=== PATIENT | male | born 1935 | race Caucasian/White ===

== ENCOUNTER 2021-08-12 04:41 | Inpatient (IN) | payer OTHER, MEDICARE ==
[2021-08-12 05:07] LABS: #Basophils 0.1 10x3/uL (0.0-0.2); #Eosinphils 0.3 10x3/uL (0.0-0.5); #Monocytes 0.9 10x3/uL (0.0-1.1); %Basophils 1.4 % (0.0-2.0); %Eosinophils 4.7 % (0.0-6.0); %Lymphocytes 19.1 % (18.0-47.0); %Monocytes 13.6 % (0.0-10.0); Hemoglobin 14.8 g/dL (13.5-17.5); Mean Corpuscular HGB CONC 32.8 g/dL (32.0-36.0); Mean Corpuscular Hemoglobin 27.5 pg (27.0-33.0); Mean Corpuscular Volume 83.7 fl (81.2-95.1); Mean Platelet Volume 9.9 fl (7.4-10.4); Platelet Count 225 10x3/uL (150-450); RBC Distribution Width 13.1 % (11.5-14.5); Red Blood Cell (RBC) Count 5.39 10x6/uL (4.32-5.72); White Blood Cell (WBC) Count 6.6 10x3/uL (3.5-10.5)
[2021-08-12 05:27] LABS: ALT (SGPT) 17 U/L (8-55); AST (SGOT) 20 U/L (5-34); Albumin 3.8 g/dL (3.4-4.8); Alkaline Phosphatase 113 U/L (40-110); Anion Gap 13 mmol/L (10-20); BUN (Urea Nitrogen) 22 mg/dL (8.4-25.7); Bilirubin, Total 0.6 mg/dL (0.2-1.2); Calc. Creatinine Clearance 0 mL/min (70-130); Calcium 9.7 mg/dL (7.8-10.44); Carbon Dioxide 25 mmol/L (23-31); Chloride 107 mmol/L (98-107); Globulin 2.2 g/dL (2.4-3.5); Glucose 157 mg/dL (83-110); Potassium 4.3 mmol/L (3.5-5.1); Sodium 141 mmol/L (136-145)
[2021-08-12 06:05] LABS: SARS-CoV-2 NAA Rapid Test Not Detected (NotDetected)
[2021-08-12 08:08] VITALS: BMI 25.0
[2021-08-12] MEDS ORDERED: Ondansetron ODT 4 MG TAB PO PRN (08:11)
[2021-08-12] MEDS ORDERED: Dextrose 50% Abboject 50 ML SYRINGE SLOW IVP PRN (08:20)
[2021-08-12] MEDS ORDERED: Nitroglycerin 0.4 MG TAB (25 Tab Bottle) SL PRN (08:20)
[2021-08-12] MEDS ORDERED: Dextrose 5% in Water 1,000 ML IV PRN (08:20)
[2021-08-12] MEDS ORDERED: HumaLOG 300 UNITS/3 ML VIAL SC PRN ×2 (08:20)
[2021-08-12] MEDS ORDERED: Aspirin 81 mg Enteric Coated Tablet PO SCH (09:00)
[2021-08-12 09:39] LABS: Magnesium 1.7 mg/dL (1.6-2.6)
[2021-08-12] MEDS: Metoprolol Tartrate 50 MG TAB PO SCH ×2 (10:48→20:27)
[2021-08-12 10:57] LABS: Troponin I Less than 0.010 ng/mL (< 0.028)
[2021-08-12 14:02] LABS: Troponin I Less than 0.010 ng/mL (< 0.028)
[2021-08-12] MEDS ORDERED: hydrALAZINE 20 MG/ML VIAL SLOW IVP PRN (16:04)
[2021-08-12] MEDS ORDERED: hydrALAZINE 25 MG TAB PO SCH ×2 (16:45→21:00)
[2021-08-12] MEDS ORDERED: Lisinopril 10 MG TAB PO SCH (18:44)
[2021-08-12] MEDS: Atorvastatin Calcium 40 MG TAB PO SCH (20:27)
[2021-08-12] MEDS: Carbidopa/Levodopa CR 50-200 mg Tablet PO SCH (20:28)
[2021-08-12] MEDS ORDERED: Atorvastatin Calcium 40 MG TAB PO SCH (21:00)
[2021-08-13] MEDS ORDERED: Melatonin 3 MG TAB PO SCH (00:30)
[2021-08-13] MEDS: Acetaminophen 325 MG TAB PO PRN ×2 (00:34→15:13)
[2021-08-13 04:36] LABS: #Basophils 0.1 10x3/uL (0.0-0.2); #Eosinphils 0.3 10x3/uL (0.0-0.5); #Monocytes 0.8 10x3/uL (0.0-1.1); #Neutrophils 3.5 10x3/uL (1.5-8.4); %Eosinophils 5.6 % (0.0-6.0); %Lymphocytes 19.9 % (18.0-47.0); %Monocytes 13.2 % (0.0-10.0); %Neutrophils 60.1 % (40.0-75.0); Mean Corpuscular HGB CONC 33.9 g/dL (32.0-36.0); Mean Corpuscular Hemoglobin 27.2 pg (27.0-33.0); Mean Corpuscular Volume 80.3 fl (81.2-95.1); Mean Platelet Volume 9.8 fl (7.4-10.4); Platelet Count 216 10x3/uL (150-450); Red Blood Cell (RBC) Count 5.52 10x6/uL (4.32-5.72); White Blood Cell (WBC) Count 5.9 10x3/uL (3.5-10.5)
[2021-08-13 04:49] LABS: Anion Gap 14 mmol/L (10-20); BUN (Urea Nitrogen) 21 mg/dL (8.4-25.7); Calc. Creatinine Clearance 43 mL/min (70-130); Calcium 9.6 mg/dL (7.8-10.44); Carbon Dioxide 25 mmol/L (23-31); Cardiac Risk 3.4 (Less than 4.5); Chloride 107 mmol/L (98-107); Cholesterol 103 mg/dl (< 200 Desired); Glucose 140 mg/dL (83-110); HDL Cholesterol 30 mg/dL (>60 Neg Risk); LDL Cholesterol, Calculated 57 mg/dL; Potassium 4.3 mmol/L (3.5-5.1); Sodium 142 mmol/L (136-145); Triglycerides 80 mg/dL (Less than 150)
[2021-08-13] MEDS: Levothyroxine Sodium 100 MCG TAB PO SCH (05:15)
[2021-08-13] MEDS ORDERED: Carvedilol 6.25 MG TAB PO SCH (08:00)
[2021-08-13] MEDS: Amlodipine 10 MG TAB PO SCH (10:23)
[2021-08-13] MEDS: Carvedilol 12.5 MG TAB PO SCH ×2 (10:23→15:45)
[2021-08-13] MEDS: glipiZIDE 5 MG TAB PO SCH (10:23)
[2021-08-13] MEDS: Carbidopa/Levodopa CR 50-200 mg Tablet PO SCH ×2 (10:25→21:59)
[2021-08-13 12:38] LABS: Hemoglobin A1c 7.2 % (4.0-6.0)
[2021-08-13] MEDS ORDERED: Carvedilol 12.5 MG TAB PO SCH ×2 (15:45→17:00)
[2021-08-13] MEDS: Carvedilol 25 MG TAB PO SCH (17:22)
[2021-08-13] MEDS: Ondansetron PF 4 MG/2 ML Vial IVP PRN (20:17)
[2021-08-13] MEDS: Atorvastatin Calcium 40 MG TAB PO SCH (21:59)
[2021-08-13] MEDS: Melatonin 3 MG TAB PO PRN (22:10)
[2021-08-14] MEDS: Ondansetron PF 4 MG/2 ML Vial IVP PRN ×3 (02:19→16:00)
[2021-08-14] MEDS: Levothyroxine Sodium 100 MCG TAB PO SCH (05:46)
[2021-08-14] MEDS: Carvedilol 25 MG TAB PO SCH ×2 (10:14→17:03)
[2021-08-14] MEDS: Amlodipine 10 MG TAB PO SCH (10:14)
[2021-08-14] MEDS: Lisinopril 5 MG TAB PO SCH (10:14)
[2021-08-14] MEDS: glipiZIDE 5 MG TAB PO SCH (10:14)
[2021-08-14] MEDS: Carbidopa/Levodopa CR 50-200 mg Tablet PO SCH ×2 (10:15→20:23)
[2021-08-14] MEDS ORDERED: Promethazine HCl 12.5 MG in Sodium Chloride 0.9% 50 ML IVPB SCH (16:00)
[2021-08-14] MEDS: Melatonin 3 MG TAB PO PRN (20:23)
[2021-08-14] MEDS: Atorvastatin Calcium 40 MG TAB PO SCH (20:23)
[2021-08-15] MEDS: Levothyroxine Sodium 100 MCG TAB PO SCH (07:17)
[2021-08-15] MEDS: Amlodipine 10 MG TAB PO SCH (09:28)
[2021-08-15] MEDS: glipiZIDE 5 MG TAB PO SCH (09:28)
[2021-08-15] MEDS: Carvedilol 25 MG TAB PO SCH (09:29)
[2021-08-15] MEDS: Ondansetron PF 4 MG/2 ML Vial IVP PRN (09:29)
[2021-08-15] MEDS: Lisinopril 5 MG TAB PO SCH (09:29)
[2021-08-15] MEDS: Carbidopa/Levodopa CR 50-200 mg Tablet PO SCH (10:26)
[2021-08-15 13:06] VITALS: BP 122/60; TEMP 97.4
== END 2021-08-15 13:30 | disposition home or self-care (01) | DRG 683 ==
LOC: CSHERS 04:41 → CSHTELE 08:04 → INTOOBSV 08:04 → OBSVTOIN 08-14 11:02
PROVIDERS: ADMIT Family Medicine; ATTEND Family Medicine
DX: I12.9 Hypertensive chronic kidney disease with stage 1 through stage 4 chronic kidney disease, or unspecified chronic kidney disease (principal); N17.9 Acute kidney failure, unspecified; R07.89 Other chest pain; Z20.822 Contact with and (suspected) exposure to COVID-19; E78.5 Hyperlipidemia, unspecified; G20 Parkinson's disease; I25.10 Atherosclerotic heart disease of native coronary artery without angina pectoris; K21.9 Gastro-esophageal reflux disease without esophagitis; E03.9 Hypothyroidism, unspecified; E11.22 Type 2 diabetes mellitus with diabetic chronic kidney disease; N18.30 Chronic kidney disease, stage 3 unspecified; F32.A Depression, unspecified; I49.5 Sick sinus syndrome; M10.9 Gout, unspecified; Z95.0 Presence of cardiac pacemaker; Z79.899 Other long term (current) drug therapy; Z79.890 Hormone replacement therapy; Z90.89 Acquired absence of other organs; Z90.49 Acquired absence of other specified parts of digestive tract; Z87.891 Personal history of nicotine dependence
CPT/HCPCS: 36415; 36416; 71045; 80048; 80053; 80061; 83036; 83735; 84443; 84484; 85025; 93005; 93010; 93306; 94760; 96374; G0378; J0360; J2405; J2550; Q0162; U0002

== ENCOUNTER 2023-04-13 00:31 | Inpatient (IN) | payer OTHER, MEDICARE ==
[2023-04-13 01:31] LABS: ALT (SGPT) 15 U/L (8-55); AST (SGOT) 21 U/L (5-34); Albumin 3.8 g/dL (3.4-4.8); Alkaline Phosphatase 147 U/L (40-110); Anion Gap 15 mmol/L (10-20); BUN (Urea Nitrogen) 23 mg/dL (8.4-25.7); Bilirubin, Total 0.5 mg/dL (0.2-1.2); Calc. Creatinine Clearance 0 mL/min (70-130); Calcium 9.6 mg/dL (7.8-10.44); Carbon Dioxide 21 mmol/L (23-31); Chloride 110 mmol/L (98-107); Estimated GFR 25; Globulin 3.1 g/dL (2.4-3.5); Glucose 246 mg/dL (83-110); Potassium 4.8 mmol/L (3.5-5.1); Protein, Total 6.9 g/dL (5.8-8.1); Sodium 141 mmol/L (136-145)
[2023-04-13 01:34] LABS: #Basophils 0.1 10x3/uL (0.0-0.2); #Eosinphils 0.2 10x3/uL (0.0-0.5); %Basophils 0.6 % (0.0-2.0); %Lymphocytes 8.3 % (18.0-47.0); %Monocytes 8.9 % (0.0-10.0); %Neutrophils 79.8 % (40.0-75.0); Hematocrit 44.1 % (38.8-50.0); Hemoglobin 14.2 g/dL (13.5-17.5); Mean Corpuscular HGB CONC 32.2 g/dL (32.0-36.0); Mean Corpuscular Volume 83.8 fl (81.2-95.1); Mean Platelet Volume 9.7 fl (7.4-10.4); Platelet Count 232 10x3/uL (150-450); RBC Distribution Width 13.7 % (11.5-14.5); Red Blood Cell (RBC) Count 5.26 10x6/uL (4.32-5.72); White Blood Cell (WBC) Count 11.3 10x3/uL (3.5-10.5)
[2023-04-13 01:37] LABS: Troponin I 0.011 ng/mL (< 0.028)
[2023-04-13 01:44] LABS: SARS-CoV-2 NAA Rapid Test Not Detected (NotDetected)
[2023-04-13 03:05] LABS: Bilirubin Neg (Negative); Blood, Urine 150 (Negative); Clarity Cloudy (Clear); Glucose, Urine (Dipstick) Normal (Negative); Ketone, Urine Negative (Negative); Leukocyte 500 (Negative); Nitrite Negative (Negative); Protein, Urine (Dipstick) 100 mg/dl (Neg-Trace); Specific Gravity, Urine 1.015 (1.005-1.030)
[2023-04-13 03:15] LABS: Bacteria/HPF 2+ HPF (None Seen); CAUTI Indications for Culture Pelvic or flank pain; RBC/HPF 0-3 HPF (0-3); Squamous Epithelial 0-3 HPF (0-3); WBC/HPF Greater than 50 HPF (0-3)
[2023-04-13 03:16] LABS: Urine Culture Reflex Yes Yes
[2023-04-13] MEDS ORDERED: cefTRIAXone (ROCEPHIN) 2 GM VIAL ONE (03:16)
[2023-04-13] MEDS ORDERED: Calcium Carbonate 500 MG ChewTAB PO PRN (03:32)
[2023-04-13] MEDS ORDERED: Guaifenesin DM 100-10/5 ML UDCUP PO PRN (03:32)
[2023-04-13] MEDS ORDERED: Dextrose 50% Abboject 50 ML SYRINGE SLOW IVP PRN (03:32)
[2023-04-13] MEDS ORDERED: Ondansetron PF 4 MG/2 ML Vial IVP PRN (03:32)
[2023-04-13] MEDS ORDERED: Dextrose 5% in Water 1,000 ML IV PRN (03:32)
[2023-04-13] MEDS ORDERED: Senokot S 8.6-50 MG TAB PO PRN (03:32)
[2023-04-13] MEDS ORDERED: Glucagon 1 MG/ML KIT IM PRN (03:32)
[2023-04-13] MEDS ORDERED: Sodium Chloride 0.9% 500 ML IV SCH (03:45)
[2023-04-13 04:07] VITALS: BMI 25.7
[2023-04-13] MEDS: Levothyroxine Sodium 100 MCG TAB PO SCH (04:55)
[2023-04-13] MEDS ORDERED: Carvedilol 25 MG TAB PO SCH (08:00)
[2023-04-13] MEDS: HumaLOG 300 UNITS/3 ML VIAL SC PRN (09:00)
[2023-04-13] MEDS ORDERED: Carvedilol 3.125 MG TAB ONE (09:12)
[2023-04-13] MEDS ORDERED: Cholecalciferol 1,000 UNITS (25 MCG) TAB ONE (09:12)
[2023-04-13] MEDS ORDERED: Insulin Regular 300 UNITS/3 ML VIAL ONE (09:17)
[2023-04-13] MEDS: Cholecalciferol 1,000 UNITS (25 MCG) TAB PO SCH (09:21)
[2023-04-13] MEDS: Carvedilol 3.125 MG TAB PO SCH ×2 (09:21→17:23)
[2023-04-13] MEDS: Polyethylene Glycol 3350 17 GM Packet PO SCH (09:22)
[2023-04-13] MEDS: glipiZIDE 5 MG TAB PO SCH (09:22)
[2023-04-13] MEDS ORDERED: FLU VACC QS2023(65UP)/MF59C/PF 60 MCG/0.5 ML SYRINGE IM ONE (18:45)
[2023-04-13] MEDS: Gabapentin 300 MG CAP PO SCH (22:21)
[2023-04-13] MEDS: Rosuvastatin 10 MG TAB PO SCH (22:22)
[2023-04-13] MEDS: Doxepin HCl 25 MG CAP PO SCH (22:23)
[2023-04-14] MEDS: cefTRIAXone\\ROCEPHIN 1 GM in Sodium Chloride 0.9% 100 ML IVPB SCH (03:58)
[2023-04-14 04:36] LABS: #Basophils 0.1 10x3/uL (0.0-0.2); #Eosinphils 0.2 10x3/uL (0.0-0.5); #Monocytes 0.8 10x3/uL (0.0-1.1); #Neutrophils 3.9 10x3/uL (1.5-8.4); %Eosinophils 3.4 % (0.0-6.0); %Lymphocytes 16.8 % (18.0-47.0); %Monocytes 13.8 % (0.0-10.0); %Neutrophils 64.8 % (40.0-75.0); Hematocrit 36.8 % (38.8-50.0); Hemoglobin 12.1 g/dL (13.5-17.5); Mean Corpuscular HGB CONC 32.9 g/dL (32.0-36.0); Mean Corpuscular Hemoglobin 27.6 pg (27.0-33.0); Platelet Count 191 10x3/uL (150-450); RBC Distribution Width 13.7 % (11.5-14.5); Red Blood Cell (RBC) Count 4.38 10x6/uL (4.32-5.72); White Blood Cell (WBC) Count 5.9 10x3/uL (3.5-10.5)
[2023-04-14 05:05] LABS: Anion Gap 12 mmol/L (10-20); BUN (Urea Nitrogen) 27 mg/dL (8.4-25.7); CK (CPK) 19 U/L (30-200); Calc. Creatinine Clearance 30 mL/min (70-130); Calcium 8.9 mg/dL (7.8-10.44); Carbon Dioxide 21 mmol/L (23-31); Chloride 112 mmol/L (98-107); Estimated GFR 28; Glucose 203 mg/dL (83-110); Sodium 141 mmol/L (136-145)
[2023-04-14] MEDS: Levothyroxine Sodium 100 MCG TAB PO SCH (05:48)
[2023-04-14] MEDS: Fluticasone Propionate Nasal Spray 16 gm Bottle NASAL SCH (09:58)
[2023-04-14] MEDS: Cholecalciferol 1,000 UNITS (25 MCG) TAB PO SCH (09:58)
[2023-04-14] MEDS: glipiZIDE 5 MG TAB PO SCH (09:58)
[2023-04-14] MEDS: Carvedilol 3.125 MG TAB PO SCH ×2 (09:58→17:26)
[2023-04-14] MEDS: Polyethylene Glycol 3350 17 GM Packet PO SCH (09:59)
[2023-04-14] MEDS: Gabapentin 300 MG CAP PO SCH (20:43)
[2023-04-14] MEDS: Rosuvastatin 10 MG TAB PO SCH (20:44)
[2023-04-14] MEDS: Doxepin HCl 25 MG CAP PO SCH (20:44)
[2023-04-15] MEDS: cefTRIAXone\\ROCEPHIN 1 GM in Sodium Chloride 0.9% 100 ML IVPB SCH (03:55)
[2023-04-15] MEDS: Levothyroxine Sodium 100 MCG TAB PO SCH (05:15)
[2023-04-15] MEDS: Carvedilol 3.125 MG TAB PO SCH ×2 (09:10→17:45)
[2023-04-15] MEDS: Fluticasone Propionate Nasal Spray 16 gm Bottle NASAL SCH (09:10)
[2023-04-15] MEDS: Cholecalciferol 1,000 UNITS (25 MCG) TAB PO SCH (09:10)
[2023-04-15] MEDS: glipiZIDE 5 MG TAB PO SCH (09:10)
[2023-04-15] MEDS: Polyethylene Glycol 3350 17 GM Packet PO SCH (09:10)
[2023-04-15] MEDS: Lisinopril 5 MG TAB PO SCH (09:10)
[2023-04-15] MEDS: Gabapentin 300 MG CAP PO SCH (22:19)
[2023-04-15] MEDS: Doxepin HCl 25 MG CAP PO SCH (22:20)
[2023-04-15] MEDS: Apixaban 2.5 MG TAB PO SCH (22:20)
[2023-04-15] MEDS: Rosuvastatin 10 MG TAB PO SCH (22:20)
[2023-04-16] MEDS: cefTRIAXone\\ROCEPHIN 1 GM in Sodium Chloride 0.9% 100 ML IVPB SCH (03:18)
[2023-04-16] MEDS: Levothyroxine Sodium 100 MCG TAB PO SCH (06:37)
[2023-04-16] MEDS: glipiZIDE 5 MG TAB PO SCH (07:21)
[2023-04-16] MEDS: Cholecalciferol 1,000 UNITS (25 MCG) TAB PO SCH (09:59)
[2023-04-16] MEDS: Carvedilol 3.125 MG TAB PO SCH ×2 (09:59→16:53)
[2023-04-16] MEDS: Lisinopril 5 MG TAB PO SCH (09:59)
[2023-04-16] MEDS: Fluticasone Propionate Nasal Spray 16 gm Bottle NASAL SCH (09:59)
[2023-04-16] MEDS: Polyethylene Glycol 3350 17 GM Packet PO SCH (10:00)
[2023-04-16] MEDS: Apixaban 2.5 MG TAB PO SCH ×2 (10:00→21:55)
[2023-04-16] MEDS: Acetaminophen 325 MG TAB PO PRN (14:36)
[2023-04-16] MEDS ORDERED: Gabapentin 300 MG CAP PO SCH (16:30)
[2023-04-16] MEDS: Gabapentin 300 MG CAP PO SCH (21:54)
[2023-04-16] MEDS: Melatonin 3 MG TAB PO SCH (21:55)
[2023-04-16] MEDS: Doxepin HCl 25 MG CAP PO SCH (21:55)
[2023-04-16] MEDS: Rosuvastatin 10 MG TAB PO SCH (21:55)
[2023-04-17 04:26] LABS: #Basophils 0.1 10x3/uL (0.0-0.2); #Eosinphils 0.3 10x3/uL (0.0-0.5); #Monocytes 0.9 10x3/uL (0.0-1.1); #Neutrophils 5.7 10x3/uL (1.5-8.4); %Basophils 0.8 % (0.0-2.0); %Eosinophils 3.5 % (0.0-6.0); %Lymphocytes 12.7 % (18.0-47.0); %Monocytes 11.1 % (0.0-10.0); %Neutrophils 71.6 % (40.0-75.0); Hematocrit 40.8 % (38.8-50.0); Hemoglobin 13.5 g/dL (13.5-17.5); Mean Corpuscular HGB CONC 33.1 g/dL (32.0-36.0); Mean Corpuscular Hemoglobin 27.8 pg (27.0-33.0); Mean Corpuscular Volume 84.1 fl (81.2-95.1); Mean Platelet Volume 9.9 fl (7.4-10.4); Platelet Count 221 10x3/uL (150-450); RBC Distribution Width 13.7 % (11.5-14.5); Red Blood Cell (RBC) Count 4.85 10x6/uL (4.32-5.72); White Blood Cell (WBC) Count 7.9 10x3/uL (3.5-10.5)
[2023-04-17 04:36] LABS: Anion Gap 12 mmol/L (10-20); BUN (Urea Nitrogen) 27 mg/dL (8.4-25.7); Calc. Creatinine Clearance 36 mL/min (70-130); Calcium 9.3 mg/dL (7.8-10.44); Carbon Dioxide 21 mmol/L (23-31); Chloride 111 mmol/L (98-107); Estimated GFR 35; Glucose 128 mg/dL (83-110); Magnesium 1.6 mg/dL (1.6-2.6); Potassium 4.1 mmol/L (3.5-5.1); Sodium 140 mmol/L (136-145)
[2023-04-17] MEDS: cefTRIAXone\\ROCEPHIN 1 GM in Sodium Chloride 0.9% 100 ML IVPB SCH (04:57)
[2023-04-17] MEDS: Levothyroxine Sodium 100 MCG TAB PO SCH (04:58)
[2023-04-17] MEDS ORDERED: Magnesium 2 GM/50 ML(in water) 2 GM in Premix 1 BAG IVPB SCH (08:00)
[2023-04-17] MEDS: Polyethylene Glycol 3350 17 GM Packet PO SCH (09:52)
[2023-04-17] MEDS: Lisinopril 5 MG TAB PO SCH (09:53)
[2023-04-17] MEDS: Cholecalciferol 1,000 UNITS (25 MCG) TAB PO SCH (09:53)
[2023-04-17] MEDS: glipiZIDE 5 MG TAB PO SCH (09:53)
[2023-04-17] MEDS: Carvedilol 3.125 MG TAB PO SCH ×2 (09:53→16:52)
[2023-04-17] MEDS: Apixaban 2.5 MG TAB PO SCH ×2 (09:53→21:16)
[2023-04-17] MEDS: Gabapentin 300 MG CAP PO SCH ×2 (09:54→21:16)
[2023-04-17] MEDS: Fluticasone Propionate Nasal Spray 16 gm Bottle NASAL SCH (09:55)
[2023-04-17] MEDS: HumaLOG 300 UNITS/3 ML VIAL SC PRN (16:52)
[2023-04-17] MEDS: Melatonin 3 MG TAB PO SCH (21:15)
[2023-04-17] MEDS: Doxepin HCl 25 MG CAP PO SCH (21:16)
[2023-04-17] MEDS: Rosuvastatin 10 MG TAB PO SCH (21:16)
[2023-04-18] MEDS: cefTRIAXone\\ROCEPHIN 1 GM in Sodium Chloride 0.9% 100 ML IVPB SCH (05:26)
[2023-04-18] MEDS: Levothyroxine Sodium 100 MCG TAB PO SCH (05:26)
[2023-04-18] MEDS: Cholecalciferol 1,000 UNITS (25 MCG) TAB PO SCH (09:06)
[2023-04-18] MEDS: Lisinopril 5 MG TAB PO SCH (09:06)
[2023-04-18] MEDS: Apixaban 2.5 MG TAB PO SCH ×2 (09:06→20:36)
[2023-04-18] MEDS: Carvedilol 3.125 MG TAB PO SCH ×2 (09:07→18:09)
[2023-04-18] MEDS: Fluticasone Propionate Nasal Spray 16 gm Bottle NASAL SCH (09:07)
[2023-04-18] MEDS: glipiZIDE 5 MG TAB PO SCH (09:07)
[2023-04-18] MEDS: Polyethylene Glycol 3350 17 GM Packet PO SCH (09:07)
[2023-04-18] MEDS: Gabapentin 300 MG CAP PO SCH ×2 (09:07→20:33)
[2023-04-18] MEDS ORDERED: Dextrose 5%-Lactated Ringers 1,000 ML IV SCH (13:00)
[2023-04-18] MEDS: HumaLOG 300 UNITS/3 ML VIAL SC PRN (13:14)
[2023-04-18] MEDS: Melatonin 3 MG TAB PO SCH (20:34)
[2023-04-18] MEDS: Doxepin HCl 25 MG CAP PO SCH (20:34)
[2023-04-18] MEDS: Acetaminophen 325 MG TAB PO PRN (20:35)
[2023-04-18] MEDS: Rosuvastatin 10 MG TAB PO SCH (20:36)
[2023-04-19 03:59] LABS: Anion Gap 12 mmol/L (10-20); BUN (Urea Nitrogen) 26 mg/dL (8.4-25.7); Calc. Creatinine Clearance 36 mL/min (70-130); Calcium 9.1 mg/dL (7.8-10.44); Carbon Dioxide 21 mmol/L (23-31); Chloride 112 mmol/L (98-107); Estimated GFR 35; Glucose 143 mg/dL (83-110); Sodium 141 mmol/L (136-145)
[2023-04-19 04:07] LABS: #Basophils 0.1 10x3/uL (0.0-0.2); #Eosinphils 0.2 10x3/uL (0.0-0.5); #Monocytes 0.8 10x3/uL (0.0-1.1); #Neutrophils 3.8 10x3/uL (1.5-8.4); %Eosinophils 3.9 % (0.0-6.0); %Lymphocytes 16.8 % (18.0-47.0); %Monocytes 13.2 % (0.0-10.0); %Neutrophils 64.8 % (40.0-75.0); Hematocrit 37.8 % (38.8-50.0); Hemoglobin 12.8 g/dL (13.5-17.5); Mean Corpuscular HGB CONC 33.9 g/dL (32.0-36.0); Mean Corpuscular Hemoglobin 28.1 pg (27.0-33.0); Mean Corpuscular Volume 82.9 fl (81.2-95.1); Mean Platelet Volume 9.9 fl (7.4-10.4); Platelet Count 222 10x3/uL (150-450); RBC Distribution Width 13.4 % (11.5-14.5); Red Blood Cell (RBC) Count 4.56 10x6/uL (4.32-5.72); White Blood Cell (WBC) Count 5.8 10x3/uL (3.5-10.5)
[2023-04-19] MEDS: cefTRIAXone\\ROCEPHIN 1 GM in Sodium Chloride 0.9% 100 ML IVPB SCH (04:44)
[2023-04-19] MEDS: Levothyroxine Sodium 100 MCG TAB PO SCH (05:23)
[2023-04-19] MEDS: glipiZIDE 5 MG TAB PO SCH (09:04)
[2023-04-19] MEDS: Carvedilol 3.125 MG TAB PO SCH ×2 (09:04→18:13)
[2023-04-19] MEDS: Cholecalciferol 1,000 UNITS (25 MCG) TAB PO SCH (09:04)
[2023-04-19] MEDS: Gabapentin 300 MG CAP PO SCH ×2 (09:04→22:01)
[2023-04-19] MEDS: Polyethylene Glycol 3350 17 GM Packet PO SCH (09:06)
[2023-04-19] MEDS: Apixaban 2.5 MG TAB PO SCH ×2 (09:06→21:59)
[2023-04-19] MEDS: Lisinopril 5 MG TAB PO SCH (10:25)
[2023-04-19] MEDS: Fluticasone Propionate Nasal Spray 16 gm Bottle NASAL SCH (10:25)
[2023-04-19] MEDS: HumaLOG 300 UNITS/3 ML VIAL SC PRN (12:35)
[2023-04-19] MEDS: Acetaminophen 325 MG TAB PO PRN (16:13)
[2023-04-19] MEDS: Doxepin HCl 25 MG CAP PO SCH (22:00)
[2023-04-19] MEDS: Rosuvastatin 10 MG TAB PO SCH (22:00)
[2023-04-19] MEDS: Melatonin 3 MG TAB PO SCH (22:00)
[2023-04-19] MEDS: Mirtazapine 15 MG TAB PO SCH (22:02)
[2023-04-20] MEDS: cefTRIAXone\\ROCEPHIN 1 GM in Sodium Chloride 0.9% 100 ML IVPB SCH (03:36)
[2023-04-20 04:18] LABS: Anion Gap 12 mmol/L (10-20); BUN (Urea Nitrogen) 22 mg/dL (8.4-25.7); Calc. Creatinine Clearance 39 mL/min (70-130); Carbon Dioxide 20 mmol/L (23-31); Chloride 114 mmol/L (98-107); Estimated GFR 39; Glucose 143 mg/dL (83-110); Sodium 142 mmol/L (136-145)
[2023-04-20] MEDS: Levothyroxine Sodium 100 MCG TAB PO SCH (06:35)
[2023-04-20] MEDS: glipiZIDE 5 MG TAB PO SCH (07:36)
[2023-04-20] MEDS: Carvedilol 3.125 MG TAB PO SCH ×2 (08:55→17:17)
[2023-04-20] MEDS: Fluticasone Propionate Nasal Spray 16 gm Bottle NASAL SCH (09:54)
[2023-04-20] MEDS: Gabapentin 400 MG CAP PO SCH (09:55)
[2023-04-20] MEDS: Cholecalciferol 1,000 UNITS (25 MCG) TAB PO SCH (09:55)
[2023-04-20] MEDS: Apixaban 2.5 MG TAB PO SCH ×2 (09:55→21:32)
[2023-04-20] MEDS: Lisinopril 5 MG TAB PO SCH (09:55)
[2023-04-20] MEDS: Polyethylene Glycol 3350 17 GM Packet PO SCH ×2 (09:56→10:02)
[2023-04-20] MEDS ORDERED: Bisacodyl 5 MG TAB PO PRN (11:37)
[2023-04-20] MEDS: Rosuvastatin 10 MG TAB PO SCH (21:32)
[2023-04-20] MEDS: Melatonin 3 MG TAB PO SCH (21:32)
[2023-04-20] MEDS: Mirtazapine 15 MG TAB PO SCH (21:33)
[2023-04-20] MEDS: Gabapentin 300 MG CAP PO SCH (21:33)
[2023-04-20] MEDS: Doxepin HCl 25 MG CAP PO SCH (21:34)
[2023-04-21 04:56] LABS: Anion Gap 11 mmol/L (10-20); BUN (Urea Nitrogen) 21 mg/dL (8.4-25.7); Calc. Creatinine Clearance 39 mL/min (70-130); Calcium 9.6 mg/dL (7.8-10.44); Carbon Dioxide 22 mmol/L (23-31); Chloride 112 mmol/L (98-107); Estimated GFR 39; Glucose 122 mg/dL (83-110); Magnesium 1.7 mg/dL (1.6-2.6); Sodium 141 mmol/L (136-145)
[2023-04-21] MEDS: Levothyroxine Sodium 100 MCG TAB PO SCH (06:39)
[2023-04-21] MEDS: glipiZIDE 5 MG TAB PO SCH (07:39)
[2023-04-21 08:59] VITALS: TEMP 97.4
[2023-04-21] MEDS ORDERED: Magnesium 2 GM/50 ML(in water) 2 GM in Premix 1 BAG IVPB SCH (09:00)
[2023-04-21] MEDS: Fluticasone Propionate Nasal Spray 16 gm Bottle NASAL SCH (09:45)
[2023-04-21] MEDS: Polyethylene Glycol 3350 17 GM Packet PO SCH (09:55)
[2023-04-21] MEDS: Apixaban 2.5 MG TAB PO SCH (09:56)
[2023-04-21] MEDS: Gabapentin 400 MG CAP PO SCH (09:56)
[2023-04-21] MEDS: Cholecalciferol 1,000 UNITS (25 MCG) TAB PO SCH (09:56)
[2023-04-21] MEDS: Lisinopril 5 MG TAB PO SCH (09:56)
[2023-04-21] MEDS: Carvedilol 3.125 MG TAB PO SCH (09:57)
[2023-04-21 12:42] VITALS: BP 148/70
== END 2023-04-21 15:52 | disposition home or self-care (01) | DRG 683 ==
LOC: CSHERS 00:31 → CSHERHOLD 03:32 → CSHTELE 16:04 → OBSVTOIN 04-16 11:17
PROVIDERS: ADMIT Student in an Organized Health Care Education/Training Program; ATTEND Internal Medicine
DX: N17.9 Acute kidney failure, unspecified (principal); I13.0 Hypertensive heart and chronic kidney disease with heart failure and stage 1 through stage 4 chronic kidney disease, or unspecified chronic kidney disease; N39.0 Urinary tract infection, site not specified; I48.20 Chronic atrial fibrillation, unspecified; E78.5 Hyperlipidemia, unspecified; I50.9 Heart failure, unspecified; F32.A Depression, unspecified; N18.30 Chronic kidney disease, stage 3 unspecified; E11.22 Type 2 diabetes mellitus with diabetic chronic kidney disease; I25.10 Atherosclerotic heart disease of native coronary artery without angina pectoris; G20.A1 Parkinson's disease without dyskinesia, without mention of fluctuations; E86.0 Dehydration; E03.9 Hypothyroidism, unspecified; K21.9 Gastro-esophageal reflux disease without esophagitis; Z11.52 Encounter for screening for COVID-19; Z90.49 Acquired absence of other specified parts of digestive tract; Z98.890 Other specified postprocedural states; Z87.891 Personal history of nicotine dependence; Z79.899 Other long term (current) drug therapy; Z95.0 Presence of cardiac pacemaker; Z85.51 Personal history of malignant neoplasm of bladder
CPT/HCPCS: 36415; 36416; 71045; 76770; 80048; 80053; 81001; 82550; 83605; 83735; 83880; 84443; 84484; 85025; 87040; 87077; 87086; 87186; 93005; 96374; 96376; G0378; J0696; J1815; J3475; J3490; J7030

== ENCOUNTER 2023-04-29 18:05 | Inpatient (IN) | payer OTHER, MEDICARE ==
[2023-04-29 20:10] LABS: #Basophils 0.1 10x3/uL (0.0-0.2); #Eosinphils 0.3 10x3/uL (0.0-0.5); #Monocytes 0.8 10x3/uL (0.0-1.1); #Neutrophils 4.1 10x3/uL (1.5-8.4); %Eosinophils 4.4 % (0.0-6.0); %Lymphocytes 14.7 % (18.0-47.0); %Monocytes 12.2 % (0.0-10.0); %Neutrophils 67.5 % (40.0-75.0); Hemoglobin 13.3 g/dL (13.5-17.5); Mean Corpuscular HGB CONC 32.4 g/dL (32.0-36.0); Mean Corpuscular Hemoglobin 27.9 pg (27.0-33.0); Mean Platelet Volume 9.9 fl (7.4-10.4); Platelet Count 262 10x3/uL (150-450); RBC Distribution Width 13.7 % (11.5-14.5); Red Blood Cell (RBC) Count 4.77 10x6/uL (4.32-5.72); White Blood Cell (WBC) Count 6.1 10x3/uL (3.5-10.5)
[2023-04-29 20:22] LABS: ALT (SGPT) 17 U/L (8-55); AST (SGOT) 20 U/L (5-34); Albumin 3.9 g/dL (3.4-4.8); Alkaline Phosphatase 144 U/L (40-110); Anion Gap 13 mmol/L (10-20); BUN (Urea Nitrogen) 39 mg/dL (8.4-25.7); Bilirubin, Total 0.4 mg/dL (0.2-1.2); Calc. Creatinine Clearance 0 mL/min (70-130); Calcium 9.6 mg/dL (7.8-10.44); Carbon Dioxide 27 mmol/L (23-31); Chloride 108 mmol/L (98-107); Estimated GFR 19; Globulin 2.5 g/dL (2.4-3.5); Glucose 158 mg/dL (83-110); Lipase 12 U/L (8-78); Magnesium 2.6 mg/dL (1.6-2.6); Potassium 4.8 mmol/L (3.5-5.1); Protein, Total 6.4 g/dL (5.8-8.1); Sodium 143 mmol/L (136-145)
[2023-04-29 20:26] LABS: Troponin I Less than 0.010 ng/mL (< 0.028)
[2023-04-29] MEDS ORDERED: Lorazepam 2 MG/ML VIAL ONE (23:03)
[2023-04-29] MEDS ORDERED: HumaLOG 300 UNITS/3 ML VIAL SC PRN (23:25)
[2023-04-29] MEDS ORDERED: Glucagon 1 MG/ML KIT IM PRN (23:25)
[2023-04-29] MEDS ORDERED: Senokot S 8.6-50 MG TAB PO PRN (23:25)
[2023-04-29] MEDS ORDERED: Ondansetron PF 4 MG/2 ML Vial IVP PRN (23:25)
[2023-04-29] MEDS ORDERED: Calcium Carbonate 500 MG ChewTAB PO PRN (23:25)
[2023-04-29] MEDS ORDERED: Dextrose 50% Abboject 50 ML SYRINGE SLOW IVP PRN (23:25)
[2023-04-29] MEDS ORDERED: Dextrose 5% in Water 1,000 ML IV PRN (23:25)
[2023-04-29] MEDS ORDERED: Acetaminophen 325 MG TAB PO PRN (23:25)
[2023-04-29] MEDS ORDERED: Lorazepam 2 MG/ML VIAL SLOW IVP PRN (23:30)
[2023-04-29] MEDS ORDERED: Lactated Ringer's 1,000 ML IV SCH (23:45)
[2023-04-30] MEDS ORDERED: Tamsulosin HCl 0.4 MG CAP PO SCH ×3 (00:30→21:00)
[2023-04-30 01:06] LABS: Bilirubin Neg (Negative); Blood, Urine Negative (Negative); Glucose, Urine (Dipstick) Normal (Negative); Ketone, Urine Negative (Negative); Leukocyte 25 (Negative); Nitrite Negative (Negative); Protein, Urine (Dipstick) 15 mg/dl (Neg-Trace); Specific Gravity, Urine 1.015 (1.005-1.030); Urobilinogen Normal mg/dL (Less than 2)
[2023-04-30 01:21] LABS: Clarity Clear (Clear)
[2023-04-30 01:22] LABS: CAUTI Indications for Culture Alt mental st,lethar; RBC/HPF 0-3 HPF (0-3)
[2023-04-30 01:23] LABS: Bacteria/HPF Rare-Few HPF (None Seen); Squamous Epithelial 0-3 HPF (0-3)
[2023-04-30 01:24] LABS: Urine Culture Reflex No No
[2023-04-30 05:27] LABS: Anion Gap 17 mmol/L (10-20); BUN (Urea Nitrogen) 34 mg/dL (8.4-25.7); CK (CPK) 184 U/L (30-200); Calc. Creatinine Clearance 0 mL/min (70-130); Calcium 9.5 mg/dL (7.8-10.44); Carbon Dioxide 16 mmol/L (23-31); Chloride 110 mmol/L (98-107); Estimated GFR 24; Glucose 125 mg/dL (83-110); Potassium 4.9 mmol/L (3.5-5.1); Sodium 138 mmol/L (136-145)
[2023-04-30 05:28] LABS: Magnesium 2.4 mg/dL (1.6-2.6)
[2023-04-30] MEDS ORDERED: Levothyroxine Sodium 100 MCG TAB PO SCH (06:00)
[2023-04-30] MEDS ORDERED: glipiZIDE 5 MG TAB PO SCH (07:30)
[2023-04-30] MEDS ORDERED: Carvedilol 3.125 MG TAB PO SCH (08:00)
[2023-04-30] MEDS ORDERED: Apixaban 2.5 MG TAB PO SCH (09:00)
[2023-04-30] MEDS ORDERED: Gabapentin 300 MG CAP PO SCH (09:00)
[2023-04-30] MEDS ORDERED: Finasteride 5 MG TAB PO SCH (09:00)
[2023-04-30] MEDS ORDERED: Polyethylene Glycol 3350 17 GM Packet PO SCH (09:00)
[2023-04-30 12:01] VITALS: TEMP 97.8
[2023-04-30 13:13] VITALS: BP 130/67
[2023-04-30] MEDS ORDERED: Mirtazapine 15 MG TAB PO SCH (21:00)
[2023-04-30] MEDS ORDERED: Doxepin HCl 25 MG CAP PO SCH (21:00)
[2023-04-30] MEDS ORDERED: Cholecalciferol 1,000 UNITS (25 MCG) TAB PO SCH (21:00)
[2023-04-30] MEDS ORDERED: Rosuvastatin 10 MG TAB PO SCH (21:00)
== END 2023-04-30 15:40 | DRG 682 ==
LOC: CSHERS 18:05 → CSHERHOLD 23:29 → CSHTELE 04-30 02:19
PROVIDERS: ADMIT Student in an Organized Health Care Education/Training Program; ATTEND Internal Medicine
PROC: 0T9B70Z Drainage of Bladder with Drainage Device, Via Natural or Artificial Opening (ICD-10-PCS; principal; 2023-04-29)
DX: N17.9 Acute kidney failure, unspecified (principal); G93.41 Metabolic encephalopathy; F05 Delirium due to known physiological condition; I48.20 Chronic atrial fibrillation, unspecified; I13.0 Hypertensive heart and chronic kidney disease with heart failure and stage 1 through stage 4 chronic kidney disease, or unspecified chronic kidney disease; Z88.1 Allergy status to other antibiotic agents; Z88.8 Allergy status to other drugs, medicaments and biological substances; Z79.899 Other long term (current) drug therapy; Z79.84 Long term (current) use of oral hypoglycemic drugs; I48.91 Unspecified atrial fibrillation; E03.9 Hypothyroidism, unspecified; I25.10 Atherosclerotic heart disease of native coronary artery without angina pectoris; Z95.0 Presence of cardiac pacemaker; E78.00 Pure hypercholesterolemia, unspecified; I50.9 Heart failure, unspecified; E11.22 Type 2 diabetes mellitus with diabetic chronic kidney disease; Z90.49 Acquired absence of other specified parts of digestive tract; Z90.89 Acquired absence of other organs; F32.A Depression, unspecified; Z87.891 Personal history of nicotine dependence; Z79.01 Long term (current) use of anticoagulants; E86.0 Dehydration; N18.32 Chronic kidney disease, stage 3b
CPT/HCPCS: 36415; 36416; 70450; 71045; 80048; 80053; 81001; 82550; 83690; 83735; 83880; 84484; 85025; 93005; J1815; J2060; J7120